=== PATIENT | female | born 1990 | race Caucasian/White ===

== ENCOUNTER → 2018-06-24 | Outpatient (CLI) | payer OTHER | END | disposition home or self-care (01) | LOC: CFH 09:35 | PROVIDERS: ATTEND Nurse Practitioner Primary Care | DX: R10.9 Unspecified abdominal pain (principal); R53.83 Other fatigue; E55.9 Vitamin D deficiency, unspecified; Z79.899 Other long term (current) drug therapy | CPT/HCPCS: 76700 ==

== ENCOUNTER 2020-02-28 13:30 | Emergency (ER) | payer OTHER ==
[~2020-02-28] VITALS: Ht 157.5 cm; Wt 52.7 kg
[2020-02-28] MEDS ORDERED: MAALOX/HYOSCYAMINE/LIDOCAINE 45 ML BTL ONE (13:50)
[2020-02-28] MEDS ORDERED: MAALOX/HYOSCYAMINE/LIDOCAINE 45 ML BTL PO ONE (14:00)
--- NOTE | 2020-02-28 14:00 | NUR ---
FIRST CONTACT WITH PT. PT C/O SORE THROAT AND NAUSEA: 30 MINUTES AGO WAS EATING AND FEELS LIKE FOOD IS STUCK IN THROAT. PT REPORTS SHE WAS EATING PIZZA, WING, AND FRIES. PT ABLE TO SPEAK IN FULL SENTENCES AND MAINTAIN AIRWAY AND SWALLOW SECREATIONS. PT'S AOX4. RESPS EVEN AND UNLABORED. BP/SPO2 MONITORS IN PLACE. CALL LIGHT WITHIN REACH.
--- NOTE | 2020-02-28 14:01 | NUR ---
PT MEDICATED PER EMAR. PT STATES"IT'S DIFFICULT TO SWALLOW." PT HAD HALF OF GI COCKTAIL. EDMD NOTIFIED.
--- NOTE | 2020-02-28 14:04 | NUR ---
PT AMB TO BR WITH STEADY GAIT.
--- NOTE | 2020-02-28 14:21 | NUR ---
PT BACK TO ROOM FROM BR. PT RESTING IN [facility]. PT'S AOX4. RESPS EVEN AND UNLABORED.
[2020-02-28] MEDS ORDERED: ONDANSETRON ODT 4 MG ONE (14:54)
--- NOTE | 2020-02-28 14:56 | NUR ---
pt medicated per emar for nausea. pt tolerated well.
--- NOTE | 2020-02-28 14:56 | NUR ---
pt c/o nausea at this time. edmd notified.
[2020-02-28] MEDS ORDERED: ONDANSETRON ODT 4 MG PO ONE (15:00)
--- NOTE | 2020-02-28 15:30 | NUR ---
pt back to room from imagining.
[2020-02-28 15:35] VITALS: BP 110/73
--- NOTE | 2020-02-28 15:54 | NUR ---
Patient given discharge instructions and they have confirmed that they understand the instructions.
== END 2020-02-28 15:54 | disposition home or self-care (01) ==
LOC: ED 14:14
DX: T18.128A Food in esophagus causing other injury, initial encounter (principal); X58.XXXA Exposure to other specified factors, initial encounter; Y93.89 Activity, other specified; Y92.89 Other specified places as the place of occurrence of the external cause; Y99.8 Other external cause status
CPT/HCPCS: 74220; 99283; Q0162